=== PATIENT | female | born 1995 | race Caucasian/White ===

== ENCOUNTER 2017-01-15 11:49 | Emergency (ER) | payer BC ==
[2017-01-15 12:14] VITALS: BP 110/73
--- NOTE | 2017-01-15 16:28 | UC ---
Respiratory Complaint HPI - HPI Summary HPI Summary: PATIENT PRESENTS TO THE WITH CC OF COUGH, CONGESTION AND STUFFY NOSE SINCE 3 DAYS AGO AND FEELS IT IS GETTING WORSE. SHE STATES SHE TAKES ZPACKS WHEN SHE GETS THESE SYMPTOMS. DENIES N/V/C/D. DENIES FATIGUE. PATIENT STATES SHE GETS BRONCHITIS AND SINUSITIS EVERY YEAR AND NEEDS ANTIBIOTICS FOR RELIEF. SHE WAS ENCOURAGED TO FOLLOW UP WITH FLOOR SURFACER AND CECIL DAVILA D/T RECURRENT INFECTIONS. PATIENT WAS EDUCATED ABOUT THE LOW SUSPICION FOR SINUS INFECTIONS, BUT PATIENT IS PERSISTENT WITH ANTIBIOTICS. - History of Current Complaint Chief Complaint: UCRespiratory Stated Complaint: COUGH Time Seen by Provider: 01/15/17 12:20 Hx Obtained From: Patient Hx Last Menstrual Period: 12/24/16 ?: No Onset/Duration: Sudden Onset Severity Initially: Moderate Severity Currently: Moderate Pain Intensity: 4 Pain Scale Used: 0-10 Numeric Character: Cough: Productive Aggravating Factors: Allergens, Deep Breaths Alleviating Factors: Upright Position Associated Signs And Symptoms: Positive: Dyspnea, URI, Nasal Congestion, Hoarseness, Sinus Discomfort - Risk Factors Pulmonary Embolism Risk Factors: Negative Cardiac Risk Factors: Negative Pseudomonas Risk Factors: Negative Tuberculosis Risk Factors: Negative - Allergies/Home Medications Allergies/Adverse Reactions: Allergies Allergy/AdvReac Type Severity Reaction Status Date / Time No Known Allergies Allergy Verified 01/15/17 12:14 Home Medications: Home Medications Norgestimate-Ethinyl Estradiol [Zop-Td-Qytbxocz 0.18/0.215/0.25 mg-25 Mcg] 1 tab PO BEDTIME 01/15/17 [History Confirmed 01/15/17] PMH/Surg Hx/FS Hx/Imm Hx Previously Healthy: Yes - Surgical History Surgical History: Yes Surgery Procedure, Year, and Place: hernia - Social History Occupation: Unemployed Lives: With Family Alcohol Use: Occasionally Substance Use Type: None Smoking Status (MU): Never Smoked Tobacco Have You Smoked in the Last Year: No Review of Systems Constitutional: Negative Skin: Negative Eyes: Negative ENT: Sore Throat, Ear Ache, Nasal Discharge Respiratory: Shortness Of Breath, Cough Cardiovascular: Negative Genitourinary: Negative Motor: Negative Musculoskeletal: Negative Neurological: Negative Psychological: Negative All Other Systems Reviewed And Are Negative: Yes Physical Exam Triage Information Reviewed: Yes Appearance: Well-Appearing, No Pain Distress, Well-Nourished Vital Signs: Initial Vital Signs Temp 99.3 F 01/15/17 12:08 Pulse 84 01/15/17 12:08 Resp 16 01/15/17 12:08 BP 110/73 01/15/17 12:08 Pulse Ox 100 01/15/17 12:08 Vital Signs Reviewed: Yes Eye Exam: Normal Eyes: Positive: Conjunctiva Clear ENT: Positive: Pharynx normal, Nasal congestion, TMs normal Dental Exam: Normal Neck exam: Normal Neck: Positive: Supple, Nontender, No Lymphadenopathy Respiratory Exam: Normal Respiratory: Positive: Chest non-tender, Lungs clear Cardiovascular Exam: Normal Musculoskeletal Exam: Normal Musculoskeletal: Positive: Strength Intact Neurological Exam: Normal Neurological: Positive: Alert Psychological Exam: Normal Psychological: Positive: Normal Response To Family Skin Exam: Normal Diagnostic Evaluation - Laboratory O2 Sat by Pulse Oximetry: 100 Respiratory Course/Dx - Course Course Of Treatment: PATIENT PRESCRIBED AZITHROMYCIN, PREDNISONE, TESSALSON AND ROBITUSSIN WITH CODEINE ONLY AT NIGHT. PATIENT DIAGNOSED WITH UPPER RESPIRATORY INFECTION AND EXPLAINED ANTIBIOTICS WILL NOT IMPROVE SYMPTOMS. ENCOURAGED TO FOLLOW UP WITH PCP. PATIENT AGREES. - Differential Dx/Diagnosis Differential Diagnosis/HQI/PQRI: Bronchitis, Influenza, Sinusitis Provider Diagnoses: UPPER RESPIRATORY INFECTION Discharge - Discharge Plan Condition: Stable Disposition: AGAINST MEDICAL ADVICE Prescriptions: Azithromycin TAB* [Zithromax TAB (Z-CIRA) 250 mg #6 tabs] 2 tab PO .TODAY, THEN 1 DAILY #1 cira Benzonatate CAP* [Tessalon CAP*] 100 mg PO TID #21 cap guaiFENesin/CODIEN 100MG-10MG* [Robitussin AC 100Mg-10Mg*] 10 ml PO Q4H PRN #60 udc MDD 10 PRN Reason: Cough predniSONE TAB* [Deltasone TAB*] 50 mg PO DAILY #5 tab Patient Education Materials: Upper Respiratory Infection (ED) Referrals: No Primary Care Phys,NOPCP [Primary Care Provider] - Additional Instructions: Take all medications as directed. If you do not improve in 1 week, please come back to . Drink plenty of fluids. A humidifier in the home can help with congestion during the colder months. Take any medication prescribed to you as directed. If you have any questions regarding your medications, you may call the office or your pharmacist. If your symptoms fail to improve or worsen, please call your primary care provider, come back to urgent care or the emergency room.
== END 2017-01-15 13:04 | disposition left against medical advice (07) ==
LOC: UCCORT 11:49
DX: J02.0 Streptococcal pharyngitis (principal)
CPT/HCPCS: 99202; G0463